=== PATIENT | female | born 1980 | race Caucasian/White ===

== ENCOUNTER 2017-12-11 18:14 | Inpatient (IN) | payer MEDICAID ==
[2017-12-11 19:02] LABS: ADD MAN DIFF? NO
[2017-12-11 19:03] LABS: BASOPHIL # 0.1 10^3/ul (0.0-0.1); BASOPHILS % 0.7 % (0.0-2.0); EOSINOPHILS # 0.1 10^3/ul (0.0-0.5); EOSINOPHILS % 1.1 % (0.0-7.0); HEMATOCRIT 28.6 % (37.0-47.0); LYMPHOCYTES % 41.1 % (15.0-51.0); MEAN CORPUSCULAR HEMOGLOBIN 23.1 pg (29.0-33.0); MEAN CORPUSCULAR HGB CONC 31.5 g/dl (32.0-37.0); MEAN CORPUSCULAR VOLUME 73.5 fl (82.0-101.0); MEAN PLATELET VOLUME 10.5 fl (7.4-10.4); MONOCYTE # 0.4 10^3/ul (0.3-0.9); MONOCYTES % 6.1 % (0.0-11.0); NEUTROPHIL # 3.6 10^3/ul (1.6-7.5); NEUTROPHILS % 49.9 % (39.0-77.0); NUCLEATED RED BLOOD CELLS # 0.2 10^3/ul (0.0-0.0); NUCLEATED RED BLOOD CELLS% 3.3 /100WBC (0.0-0.0); PLATELET COUNT 190 10^3/UL (140-415); RED BLOOD COUNT 3.89 10^6/ul (4.20-5.40); RED CELL DISTRIBUTION WIDTH 15.2 % (11.5-14.5)
[2017-12-11 19:03] LABS: WHITE BLOOD COUNT 7.2 10^3/ul (4.8-10.8)
[2017-12-11 19:18] LABS: ADD UMIC YES; UR ASCORBIC ACID NEGATIVE (NEGATIVE); UR BACTERIA FEW /HPF (NONE SEEN); UR BILIRUBIN (Dip) NEGATIVE (NEGATIVE); UR BLOOD (Dip) NEGATIVE (NEGATIVE); UR CLARITY SLIGHTLY CLOUDY (CLEAR); UR COLOR YELLOW (YELLOW); UR GLUCOSE (Dip) NEGATIVE (NEGATIVE); UR KETONES (Dip) NEGATIVE (NEGATIVE); UR LEUKOCYTE ESTERASE (Dip) NEGATIVE Leu/ul (NEGATIVE); UR NITRITE (Dip) NEGATIVE (NEGATIVE); UR RBC 1 /HPF (0-5); UR SPECIFIC GRAVITY (Dip) 1.012 (1.003-1.030); UR SQUAMOUS EPITHELIAL CELL FEW /HPF (FEW); UR TOTAL PROTEIN (Dip) 2+ mg/dl (NEGATIVE); UR UROBILINOGEN (Dip) NEGATIVE (NEGATIVE); UR WBC 3 /HPF (0-5)
[2017-12-11 19:22] LABS: ALANINE AMINOTRANSFERASE 28 IU/L (13-69); ALBUMIN 2.6 g/dl (3.3-4.9); ALBUMIN/GLOBULIN RATIO 0.72; ALKALINE PHOSPHATASE 336 IU/L (42-121); ANION GAP 10 (8-16); ASPARTATE AMINO TRANSFERASE 22 IU/L (15-46); BILIRUBIN,INDIRECT 0.2 mg/dl (0-1.1); BILIRUBIN,TOTAL 0.2 mg/dl (0.2-1.3); BLOOD UREA NITROGEN 9 mg/dl (7-20); CALCIUM 9.2 mg/dl (8.4-10.2); CARBON DIOXIDE 22 mmol/L (21-31); CHLORIDE 109 mmol/L (97-110); CREATININE 0.62 mg/dl (0.44-1.00); GLUCOSE 100 mg/dl (70-220); POTASSIUM 4.5 mmol/L (3.5-5.1); SODIUM 136 mmol/L (135-144); TOTAL PROTEIN 6.2 g/dl (6.1-8.1); URIC ACID 6.6 mg/dl (3.1-7.9)
[2017-12-11 19:23] LABS: INR 0.96; PROTIME 12.9 Sec (11.9-14.9)
[2017-12-12] MEDS: ACCU-CHEK XX ×2 (06:00→20:22)
[2017-12-12 20:52] LABS: COLLECTION PERIOD 24 hrs
[2017-12-12 21:22] LABS: CREATININE,URINE RANDOM 57.89 mg/dl (20-320)
[2017-12-12 21:26] LABS: COLLECTION PERIOD 24 hrs; VOLUME 2150 ml/24hrs
[2017-12-12 21:27] LABS: 24HR URINE TOTAL PROTEIN 1311.5 mg/24hrs (42.0-225.0); VOLUME 2150 mls
[2017-12-12 21:29] LABS: CREATININE CLEARANCE 139.4 mls/min (84.0-162.0); SCRET 0.62 mg/dl (0.44-1.00)
[2017-12-12] MEDS: BETAMET NA PHOS/AC(6 MG/ML) 5ML INJ IM (23:28)
[2017-12-12] MEDS ORDERED: GLUCOSE GEL 15 GRAM TUBE PO ×2 (23:30)
[2017-12-12] MEDS ORDERED: GLUCAGON 1 MG INJ IM (23:30)
[2017-12-12] MEDS ORDERED: DEXTROSE 50% 50 ML SYRINGE IV ×2 (23:30)
[2017-12-12] MEDS ORDERED: GLUCOSE GEL 15 GRAM TUBE BUCCAL (23:30)
[2017-12-13] MEDS: ACCU-CHEK XX ×4 (06:00→20:37)
[2017-12-13 06:44] LABS: ADD MAN DIFF? NO
[2017-12-13 06:49] LABS: BASOPHILS % 0.4 % (0.0-2.0); HEMATOCRIT 31.3 % (37.0-47.0); HEMOGLOBIN 9.8 g/dl (12.0-16.0); LYMPHOCYTES # 1.7 10^3/ul (0.8-2.9); LYMPHOCYTES % 24.1 % (15.0-51.0); MEAN CORPUSCULAR HEMOGLOBIN 22.7 pg (29.0-33.0); MEAN CORPUSCULAR HGB CONC 31.3 g/dl (32.0-37.0); MEAN CORPUSCULAR VOLUME 72.6 fl (82.0-101.0); MEAN PLATELET VOLUME 11.5 fl (7.4-10.4); MONOCYTE # 0.1 10^3/ul (0.3-0.9); MONOCYTES % 1.7 % (0.0-11.0); NEUTROPHIL # 5.1 10^3/ul (1.6-7.5); NEUTROPHILS % 70.5 % (39.0-77.0); NUCLEATED RED BLOOD CELLS # 0.2 10^3/ul (0.0-0.0); PLATELET COUNT 193 10^3/UL (140-415); RED BLOOD COUNT 4.31 10^6/ul (4.20-5.40); RED CELL DISTRIBUTION WIDTH 15.8 % (11.5-14.5)
[2017-12-13 06:49] LABS: WHITE BLOOD COUNT 7.2 10^3/ul (4.8-10.8)
[2017-12-13] MEDS: INSULIN ASPART [NOVOLOG] 3 ML PEN SC ×4 (07:05→20:58)
[2017-12-13 08:22] LABS: ALANINE AMINOTRANSFERASE 18 IU/L (13-69); ALBUMIN 3.2 g/dl (3.3-4.9); ALBUMIN/GLOBULIN RATIO 0.86; ALKALINE PHOSPHATASE 378 IU/L (42-121); ANION GAP 13 (8-16); ASPARTATE AMINO TRANSFERASE 26 IU/L (15-46); BILIRUBIN,INDIRECT 0.3 mg/dl (0-1.1); BILIRUBIN,TOTAL 0.3 mg/dl (0.2-1.3); BLOOD UREA NITROGEN 9 mg/dl (7-20); CALCIUM 8.8 mg/dl (8.4-10.2); CARBON DIOXIDE 20 mmol/L (21-31); CHLORIDE 109 mmol/L (97-110); CREATININE 0.62 mg/dl (0.44-1.00); GLUCOSE 104 mg/dl (70-220); POTASSIUM 4.3 mmol/L (3.5-5.1); SODIUM 138 mmol/L (135-144); TOTAL PROTEIN 6.9 g/dl (6.1-8.1)
[2017-12-13] MEDS: PRENATAL VITAMIN PO (09:07)
[2017-12-13] MEDS: BETAMET NA PHOS/AC(6 MG/ML) 5ML INJ IM (23:32)
[2017-12-14] MEDS: INSULIN ASPART [NOVOLOG] 3 ML PEN SC ×4 (07:35→20:49)
[2017-12-14] MEDS: ACCU-CHEK XX ×4 (08:08→20:30)
[2017-12-14] MEDS: PRENATAL VITAMIN PO (08:18)
[2017-12-15 07:35] LABS: ALANINE AMINOTRANSFERASE 31 IU/L (13-69); ALBUMIN 2.5 g/dl (3.3-4.9); ALBUMIN/GLOBULIN RATIO 0.78; ALKALINE PHOSPHATASE 294 IU/L (42-121); ANION GAP 11 (8-16); ASPARTATE AMINO TRANSFERASE 31 IU/L (15-46); BILIRUBIN,INDIRECT 0.4 mg/dl (0-1.1); BILIRUBIN,TOTAL 0.4 mg/dl (0.2-1.3); BLOOD UREA NITROGEN 20 mg/dl (7-20); CALCIUM 8.5 mg/dl (8.4-10.2); CARBON DIOXIDE 21 mmol/L (21-31); CHLORIDE 107 mmol/L (97-110); CREATININE 0.72 mg/dl (0.44-1.00); GLUCOSE 99 mg/dl (70-220); POTASSIUM 4.1 mmol/L (3.5-5.1); SODIUM 135 mmol/L (135-144); TOTAL PROTEIN 5.7 g/dl (6.1-8.1)
[2017-12-15] MEDS: INSULIN ASPART [NOVOLOG] 3 ML PEN SC ×2 (07:35→11:20)
[2017-12-15] MEDS: ACCU-CHEK XX ×4 (08:14→20:40)
[2017-12-15] MEDS: PRENATAL VITAMIN PO (09:26)
[2017-12-16] MEDS: ACCU-CHEK XX ×4 (07:37→20:19)
[2017-12-16] MEDS: PRENATAL VITAMIN PO (08:34)
[2017-12-16 12:28] LABS: WHITE BLOOD COUNT 8.6 10^3/ul (4.8-10.8)
[2017-12-16 12:28] LABS: HEMATOCRIT 31.9 % (37.0-47.0); MEAN CORPUSCULAR HEMOGLOBIN 22.9 pg (29.0-33.0); MEAN CORPUSCULAR HGB CONC 31.3 g/dl (32.0-37.0); MEAN PLATELET VOLUME 11.6 fl (7.4-10.4); NUCLEATED RED BLOOD CELLS% 13.4 /100WBC (0.0-0.0); PLATELET COUNT 168 10^3/UL (140-415); RED BLOOD COUNT 4.37 10^6/ul (4.20-5.40); RED CELL DISTRIBUTION WIDTH 15.9 % (11.5-14.5)
[2017-12-16 12:29] LABS: ADD MAN DIFF? YES; POSITIVE DIFF @See below
[2017-12-16 12:47] LABS: INR 0.93; PROTIME 12.5 Sec (11.9-14.9)
[2017-12-16 12:48] LABS: ALANINE AMINOTRANSFERASE 54 IU/L (13-69); ALBUMIN 2.8 g/dl (3.3-4.9); ALBUMIN/GLOBULIN RATIO 0.75; ALKALINE PHOSPHATASE 315 IU/L (42-121); ANION GAP 14 (8-16); ASPARTATE AMINO TRANSFERASE 53 IU/L (15-46); BILIRUBIN,INDIRECT 0.4 mg/dl (0-1.1); BILIRUBIN,TOTAL 0.4 mg/dl (0.2-1.3); BLOOD UREA NITROGEN 22 mg/dl (7-20); CALCIUM 8.8 mg/dl (8.4-10.2); CARBON DIOXIDE 21 mmol/L (21-31); CHLORIDE 106 mmol/L (97-110); CREATININE 0.71 mg/dl (0.44-1.00); GLUCOSE 97 mg/dl (70-220); PARTIAL THROMBOPLASTIN TIME 25.9 Sec (23.0-35.0); POTASSIUM 4.2 mmol/L (3.5-5.1); SODIUM 137 mmol/L (135-144); TOTAL PROTEIN 6.5 g/dl (6.1-8.1)
[2017-12-16 12:53] LABS: ANISOCYTOSIS 3+ (0-0); BAND NEUTROPHILS #M 0.6 10^3/ul (0.0-0.6); BAND NEUTROPHILS % (M) 7 % (0-4); ERYTHROBLAST% (NRBC) (M) 22 % (0-0); GIANT THROMBO% (M) 2 % (0-0); LYMPHOCYTES % (M) 35 % (15-51); MICROCYTOSIS 3+ (0-0); MONOCYTE #M 0.3 10^3/ul (0.3-0.9); MONOCYTES % (M) 4 % (0-11); MYELOCYTES #M 0.1 10^3/ul (0.0-0.0); MYELOCYTES % (M) 2 % (0-0); PLATELET ESTIMATE NORMAL; POLYCHROMASIA 2+ (0-0); SEG NEUT #M 4.5 10^3/ul (1.6-7.5); SEGMENTED NEUTROPHILS (M) % 52 % (39-77); SMUDGE%M 7 % (0-0)
[2017-12-16 15:05] LABS: RAPID PLASMA REAGIN NONREACTIVE (NR)
[2017-12-17] MEDS ORDERED: MISOPROSTOL 200 MCG TAB PR (07:00)
[2017-12-17] MEDS ORDERED: CARBOPROST 250 MCG INJ IM (07:00)
[2017-12-17] MEDS ORDERED: METHYLERGONOVINE 0.2 MG INJ IM (07:00)
[2017-12-17] MEDS ORDERED: OXYTOCIN 30 UNITS/LR 500 ML IV (07:00)
[2017-12-17] MEDS ORDERED: CEFAZOLIN 2 GM/50 ML (PMX) 50 ML IVPB (07:00)
[2017-12-17] MEDS: ACCU-CHEK XX ×4 (08:16→20:05)
[2017-12-17] MEDS: PRENATAL VITAMIN PO (08:42)
[2017-12-17] MEDS: LACTATED RINGER'S 1,000 ML IV ×3 (14:16→21:03)
[2017-12-18] MEDS: LACTATED RINGER'S 1,000 ML IV ×2 (04:29→16:48)
[2017-12-18] MEDS ORDERED: CARBOPROST 250 MCG INJ IM ×2 (05:00→12:30)
[2017-12-18] MEDS ORDERED: MISOPROSTOL 200 MCG TAB PR ×2 (05:00→12:30)
[2017-12-18] MEDS ORDERED: OXYTOCIN 30 UNITS/LR 500 ML IV ×3 (05:00→12:30)
[2017-12-18] MEDS ORDERED: METHYLERGONOVINE 0.2 MG INJ IM ×2 (05:00→12:30)
[2017-12-18] MEDS ORDERED: CEFAZOLIN 2 GM/50 ML (PMX) 50 ML IV (05:00)
[2017-12-18] MEDS ORDERED: LABETALOL HCL 20MG INJ (06:34)
[2017-12-18] MEDS: LABETALOL HCL 20MG INJ IV (06:39)
[2017-12-18] MEDS: FAMOTIDINE 20 MG INJ IV (07:43)
[2017-12-18] MEDS: MAGNESIUM SULFATE 4 GM/100 ML 100 ML IV (08:08)
[2017-12-18] MEDS: MAGNESIUM SULFATE 20 GM/500 ML 500 ML IV ×2 (08:38→18:55)
[2017-12-18] MEDS ORDERED: TERBUTALINE 1 ML (09:37)
[2017-12-18] MEDS: TERBUTALINE 1 MG/ML INJ SC (09:39)
[2017-12-18] MEDS ORDERED: BUPIVACAINE 0.75%/DEXT (SPINAL) 2 ML INJ (10:05)
[2017-12-18] MEDS ORDERED: FENTAnyl 50 MCG/ML VIAL (10:05)
[2017-12-18] MEDS ORDERED: morphine SULFATE/PF (10 MG/10 ML) INJ (10:05)
[2017-12-18] MEDS ORDERED: DEXAMETHASONE 4 MG/ML 1 ML INJ (10:36)
[2017-12-18] MEDS ORDERED: ONDANSETRON 4 MG INJ (10:36)
[2017-12-18] MEDS ORDERED: hydrALAzine 20 MG INJ (11:15)
[2017-12-18] MEDS: OXYTOCIN 30 UNITS/LR 500 ML IV (12:18)
[2017-12-18] MEDS ORDERED: DEXTROSE 5%-LR 1,000 ML IV (12:18)
[2017-12-18] MEDS ORDERED: LANOLIN 7 GM TUBE TOP (12:30)
[2017-12-18] MEDS ORDERED: METHYLERGONOVINE 0.2 MG TAB PO (12:30)
[2017-12-18] MEDS ORDERED: ONDANSETRON 4 MG INJ IV (13:00)
[2017-12-18] MEDS ORDERED: DIPHENHYDRAMINE 50 MG INJ IV (13:00)
[2017-12-18] MEDS ORDERED: KETOROLAC 30 MG INJ IV (13:00)
[2017-12-18] MEDS ORDERED: HYDROmorphONE 0.5 MG/0.5 ML SYG IV ×2 (13:00)
[2017-12-18] MEDS ORDERED: NALOXONE (0.4 MG/ML) INJ IV (13:00)
[2017-12-18] MEDS ORDERED: ZOLPIDEM 5 MG TAB PO (13:00)
[2017-12-18 13:38] LABS: MAGNESIUM 5.6 mg/dl (1.7-2.5)
[2017-12-18] MEDS ORDERED: IBUPROFEN 800 MG TAB PO (14:00)
[2017-12-18] MEDS: OXYCODONE/ACETAMINOPHEN (5/325) TAB PO ×2 (15:50→21:25)
[2017-12-18 18:29] LABS: MAGNESIUM 6.4 mg/dl (1.7-2.5)
[2017-12-18] MEDS: SENNA/DOCUSATE NA (8.6MG/50MG) TAB PO (21:25)
[2017-12-19 01:28] LABS: MAGNESIUM 6.7 mg/dl (1.7-2.5)
[2017-12-19] MEDS: LACTATED RINGER'S 1,000 ML IV ×4 (05:20→21:00)
[2017-12-19] MEDS: OXYCODONE/ACETAMINOPHEN (5/325) TAB PO ×4 (05:20→20:30)
[2017-12-19] MEDS: MAGNESIUM SULFATE 20 GM/500 ML 500 ML IV (05:26)
[2017-12-19 07:48] LABS: ADD MAN DIFF? NO
[2017-12-19 07:49] LABS: WHITE BLOOD COUNT 12.3 10^3/ul (4.8-10.8)
[2017-12-19 07:49] LABS: ABNORMAL IP MESSAGE 1; BASOPHIL # 0.1 10^3/ul (0.0-0.1); BASOPHILS % 0.4 % (0.0-2.0); EOSINOPHILS % 0.1 % (0.0-7.0); HEMATOCRIT 27.2 % (37.0-47.0); HEMOGLOBIN 8.6 g/dl (12.0-16.0); LYMPHOCYTES # 3.2 10^3/ul (0.8-2.9); LYMPHOCYTES % 26.4 % (15.0-51.0); MEAN CORPUSCULAR HEMOGLOBIN 23.2 pg (29.0-33.0); MEAN CORPUSCULAR HGB CONC 31.6 g/dl (32.0-37.0); MEAN CORPUSCULAR VOLUME 73.3 fl (82.0-101.0); MEAN PLATELET VOLUME 11.9 fl (7.4-10.4); MONOCYTE # 0.8 10^3/ul (0.3-0.9); MONOCYTES % 6.8 % (0.0-11.0); NEUTROPHILS % 64.6 % (39.0-77.0); NUCLEATED RED BLOOD CELLS # 0.4 10^3/ul (0.0-0.0); NUCLEATED RED BLOOD CELLS% 3.3 /100WBC (0.0-0.0); PLATELET COUNT 117 10^3/UL (140-415); RED BLOOD COUNT 3.71 10^6/ul (4.20-5.40); RED CELL DISTRIBUTION WIDTH 16.7 % (11.5-14.5)
[2017-12-19 07:53] LABS: POSITIVE DIFF @See below
[2017-12-19 08:17] LABS: MAGNESIUM 6.8 mg/dl (1.7-2.5)
[2017-12-19] MEDS: SENNA/DOCUSATE NA (8.6MG/50MG) TAB PO ×2 (08:47→21:33)
[2017-12-19] MEDS: LABETALOL 200 MG TAB PO ×2 (13:05→21:33)
[2017-12-19] MEDS: IBUPROFEN 800 MG TAB PO ×2 (14:00→21:33)
[2017-12-19] MEDS ORDERED: LABETALOL 200 MG TAB PO (21:00)
[2017-12-20] MEDS: OXYCODONE/ACETAMINOPHEN (5/325) TAB PO ×4 (04:27→20:57)
[2017-12-20] MEDS: IBUPROFEN 800 MG TAB PO ×3 (05:52→22:10)
[2017-12-20] MEDS: SENNA/DOCUSATE NA (8.6MG/50MG) TAB PO ×2 (08:31→20:57)
[2017-12-20] MEDS: LABETALOL 100 MG TAB PO ×2 (08:34→20:57)
[2017-12-21] MEDS: OXYCODONE/ACETAMINOPHEN (5/325) TAB PO ×2 (05:12→12:22)
[2017-12-21] MEDS: IBUPROFEN 800 MG TAB PO ×2 (05:13→13:52)
[2017-12-21] MEDS: LABETALOL 100 MG TAB PO (08:58)
[2017-12-21] MEDS: SENNA/DOCUSATE NA (8.6MG/50MG) TAB PO (08:58)
[2017-12-21] MEDS ORDERED: MEASLES,MUMPS,RUBELLA VACCINE INJ SC* (09:00)
[2017-12-21] MEDS: DIPHTH/TET/ACEL PERTUSS (ADULT) 0.5 ML VIAL IM* (09:03)
== END 2017-12-21 18:03 | disposition home or self-care (01) | DRG 784 ==
LOC: OBT 18:14 → L-D 18:15 → PP1 12-13 20:34 → L-D 12-12 22:53 → OBT 20:00 → L-D 20:00 → PP1 12-18 15:06
PROC: 10D00Z1 Extraction of Products of Conception, Low, Open Approach (ICD-10-PCS; principal; 2017-12-18 07:30)
PROC: 0UL70ZZ Occlusion of Bilateral Fallopian Tubes, Open Approach (ICD-10-PCS; 2017-12-18 07:30)
PROC: 3E033VJ Introduction of Other Hormone into Peripheral Vein, Percutaneous Approach (ICD-10-PCS; 2017-12-18 07:30)
DX: O34.211 Maternal care for low transverse scar from previous cesarean delivery (principal); Z68.42 Body mass index [BMI] 45.0-49.9, adult; O24.429 Gestational diabetes mellitus in childbirth, unspecified control; O14.94 Unspecified pre-eclampsia, complicating childbirth; O99.214 Obesity complicating childbirth; E66.9 Obesity, unspecified; Z3A.37 37 weeks gestation of pregnancy; Z37.0 Single live birth; Z30.2 Encounter for sterilization
CPT/HCPCS: 76818; 80053; 81001; 82575; 82962; 83735; 84156; 84560; 85025; 85384; 85610; 85730; 86592; 86850; 86900; 86901; 88302; 90715; 99464